=== PATIENT | female | born 1960 | race Caucasian/White ===

== ENCOUNTER 2017-03-07 08:33 | Emergency (ER) | payer MEDICARE, MEDICAID ==
[~2017-03-07] VITALS: Ht 162.6 cm; Wt 62.2 kg
[~2017-03-07 08:33] MED LIST: ALBU18HF2 IH; AMIT-189 PO; BACL10TA PO; GABA600T2 PO; HYDR-569 PO; IBUP-1985 PO; NAPR-56 PO; TRAM50TA2 PO
[2017-03-07] MEDS ORDERED: naproxen 500mg tablet PO ONE (09:15)
[2017-03-07] MEDS ORDERED: BUPIVAcaine/PF 2.5mg/ml (0.25%) 10ml vial IJ ONE (09:15)
[2017-03-07] MEDS ORDERED: HYDROcodone/acetaminophen 10/325mg tab PO ONE (09:15)
[2017-03-07] MEDS ORDERED: ipratropium/albuterol 3ml nebule NEB ONE (09:45)
[2017-03-07] MEDS ORDERED: PRED50TA PO (10:24)
[2017-03-07] MEDS ORDERED: AZIT-57 PO (10:24)
[2017-03-07] MEDS ORDERED: IBUP-1985 PO (10:24)
[2017-03-07] MEDS ORDERED: GUAI120015 PO (10:50)
[2017-03-07 10:53] VITALS: BP 118/64
== END 2017-03-07 10:55 | disposition home or self-care (01) ==
LOC: ER 08:34
DX: S63.283A Dislocation of proximal interphalangeal joint of left middle finger, initial encounter (principal); J44.1 Chronic obstructive pulmonary disease with (acute) exacerbation; R91.1 Solitary pulmonary nodule; F17.200 Nicotine dependence, unspecified, uncomplicated; G89.29 Other chronic pain; F32.9 Major depressive disorder, single episode, unspecified; M19.90 Unspecified osteoarthritis, unspecified site; F12.10 Cannabis abuse, uncomplicated; Z98.51 Tubal ligation status; Z56.0 Unemployment, unspecified; Z88.0 Allergy status to penicillin; Z88.1 Allergy status to other antibiotic agents; W01.0XXA Fall on same level from slipping, tripping and stumbling without subsequent striking against object, initial encounter; Y93.89 Activity, other specified; Y99.8 Other external cause status; Y92.009 Unspecified place in unspecified non-institutional (private) residence as the place of occurrence of the external cause
CPT/HCPCS: 26770; 71045; 73140; 94640; 94760; 99284; J3490

== ENCOUNTER 2017-04-21 01:25 | Emergency (ER) | payer MEDICARE, MEDICAID ==
[~2017-04-21] VITALS: Ht 167.6 cm; Wt 54.5 kg
[~2017-04-21 01:25] MED LIST changes: +GUAI120015 PO; +PRED50TA PO
[2017-04-21] MEDS ORDERED: normal saline 1000ML IV soln IVB ONE (01:30)
[2017-04-21 01:42] LABS: BASOPHILS # (AUTO) 0.1 X10'3 (0-0.2); EOSINOPHILS # (AUTO) 0.3 X10'3 (0-0.9); EOSINOPHILS % (AUTO) 4.7 % (0-6); HEMATOCRIT 36.1 % (35.0-45.0); HEMOGLOBIN 12.7 g/dl (12.0-16.0); LYMPHOCYTES # (AUTO) 1.5 X10'3 (1.1-4.8); LYMPHOCYTES % (AUTO) 25.4 % (21-51); MEAN CORPUSCULAR HEMOGLOBIN 33.6 PG (27.0-31.0); MEAN CORPUSCULAR HGB CONC 35.1 % (33.0-36.5); MEAN CORPUSCULAR VOLUME 95.7 FL (78-98); MEAN PLATELET VOLUME 8.3 FL (7.4-10.4); MONOCYTES # (AUTO) 0.7 X10'3 (0-0.9); MONOCYTES % (AUTO) 11.7 % (2-12); NEUTROPHILS # (AUTO) 3.3 X10'3 (1.8-7.7); NEUTROPHILS % (AUTO) 57.2 % (42-75); PLATELET COUNT 230 X10'3 (140-440); RED BLOOD COUNT 3.77 X10'6 (4.20-5.60); RED CELL DISTRIBUTION WIDTH 11.2 % (11.5-14.5); WHITE BLOOD COUNT 5.9 X10'3 (4.5-11.0)
[2017-04-21 01:55] LABS: CLARITY,URINE CLEAR (Clear); COLOR,URINE YELLOW (Yellow); GLUCOSE, URINE 500 mg/dl (Neg); KETONES,URINE 15 mg/dl (Neg); LEUKOCYTE ESTERASE ,URINE NEGATIVE (Neg); NITRITES, URINE NEGATIVE (Neg); OCCULT BLOOD,URINE TRACE-INTACT (Neg); PROTEIN,URINE 30 mg/dl (Neg); UROBILINOGEN,URINE 0.2 E.U/dL (0.2-1.0)
[2017-04-21 01:58] LABS: ALANINE AMINOTRANSFERASE 32 U/L (12-78); ALBUMIN 3.3 G/DL (3.4-5.0); ALBUMIN/GLOBULIN RATIO 1.1 (1.1-1.5); ALKALINE PHOSPHATASE 83 IU/L (46-116); ANION GAP 8 (8-16); ASPARTATE AMINO TRANSFERASE 31 U/L (10-37); BILIRUBIN,TOTAL 0.4 MG/DL (0.1-1.0); BLOOD UREA NITROGEN 16 MG/DL (7-18); BUN/CREATININE RATIO 21.9 (6.6-38.0); CALCIUM 8.7 MG/DL (8.5-10.1); CHLORIDE 107 MMOL/L (99-107); CREATININE 0.73 MG/DL (0.40-0.90); GLUCOSE 212 MG/DL (70-104); POTASSIUM 3.8 MMOL/L (3.5-5.1); SODIUM 141 MMOL/L (135-145); TOTAL CARBON DIOXIDE 25.8 MMOL/L (24-32); TOTAL PROTEIN 6.2 G/DL (6.4-8.2); eGFR 83 ML/MIN
[2017-04-21 02:02] LABS: UA COLLECTION TYPE FOLEY CATH
[2017-04-21 02:03] LABS: AMORPHOUS PHOSPHATES 1+; BACTERIA,URINE FEW /HPF (Neg); RBC,URINE 0-2 /HPF (0-2); SQUAMOUS EPITHELIAL CELL,UR FEW /LPF (FEW); WBC,URINE NONE SEEN /HPF (0-4)
[2017-04-21 02:08] LABS: URINE AMPHETAMINE SCREEN POSITIVE (Neg); URINE BARBITUATE SCREEN NEGATIVE (Neg); URINE BENZODIAZEPINES SCREEN NEGATIVE (Neg); URINE CANNABINOID SCREEN POSITIVE (Neg); URINE COCAINE SCREEN NEGATIVE (Neg); URINE METHADONE SCREEN NEGATIVE (Neg); URINE OPIATE SCREEN POSITIVE (Neg); URINE PHENCYCLIDINE SCREEN NEGATIVE (Neg)
[2017-04-21 02:09] LABS: ETHANOL < 0.010 GM/DL (0.0-0.010)
[2017-04-21 03:26] VITALS: BP 100/61
== END 2017-04-21 03:32 | disposition home or self-care (01) ==
LOC: ER 01:26
DX: T40.601A Poisoning by unspecified narcotics, accidental (unintentional), initial encounter (principal); F15.10 Other stimulant abuse, uncomplicated; R91.1 Solitary pulmonary nodule; J44.9 Chronic obstructive pulmonary disease, unspecified; G89.29 Other chronic pain; F12.10 Cannabis abuse, uncomplicated; Z60.2 Problems related to living alone; Z56.0 Unemployment, unspecified; Z79.899 Other long term (current) drug therapy; Z88.0 Allergy status to penicillin; Y92.89 Other specified places as the place of occurrence of the external cause
CPT/HCPCS: 36415; 71045; 80053; 80305; 80320; 81001; 85025; 93005; 99285; J7030

== ENCOUNTER 2018-12-25 23:16 | Emergency (ER) | payer MEDICARE, MEDICAID ==
[~2018-12-25] VITALS: Ht 162.6 cm; Wt 55.5 kg
[~2018-12-25 23:16] MED LIST changes: +GABA600T13 PO; -GABA600T2 PO; +HYDR-4383 PO; -HYDR-569 PO
[2018-12-25] MEDS ORDERED: ondansetron/PF 4mg/2ml inj IV ONE (23:45)
[2018-12-25] MEDS ORDERED: normal saline 1000ML IV soln IVB ONE (23:45)
[2018-12-26] MEDS ORDERED: iohexol 300mg/ml 100ml inj. ONE (00:07)
[2018-12-26 00:29] LABS: BASOPHILS % (AUTO) 0.2 % (0-1); EOSINOPHILS # (AUTO) 0.1 X10'3 (0-0.9); EOSINOPHILS % (AUTO) 1.2 % (0-6); HEMATOCRIT 38.6 % (35.0-45.0); HEMOGLOBIN 13.3 g/dl (12.0-16.0); LYMPHOCYTES # (AUTO) 1.7 X10'3 (1.1-4.8); LYMPHOCYTES % (AUTO) 24.1 % (21-51); MEAN CORPUSCULAR HEMOGLOBIN 33.5 PG (27.0-31.0); MEAN CORPUSCULAR HGB CONC 34.5 g/dL (33.0-36.5); MEAN CORPUSCULAR VOLUME 97.1 FL (78-98); MEAN PLATELET VOLUME 8.1 FL (7.4-10.4); MONOCYTES # (AUTO) 0.7 X10'3 (0-0.9); NEUTROPHILS # (AUTO) 4.6 X10'3 (1.8-7.7); NEUTROPHILS % (AUTO) 64.5 % (42-75); PLATELET COUNT 181 X10'3 (140-440); RED BLOOD COUNT 3.98 X10'6 (4.20-5.60); RED CELL DISTRIBUTION WIDTH 12.2 % (11.5-14.5); WHITE BLOOD COUNT 7.1 X10'3 (4.5-11.0)
[2018-12-26 00:38] LABS: ALANINE AMINOTRANSFERASE 23 U/L (12-78); ALBUMIN 3.6 G/DL (3.4-5.0); ALBUMIN/GLOBULIN RATIO 1.1 (1.1-1.5); ALKALINE PHOSPHATASE 90 IU/L (46-116); ANION GAP 8 (8-16); ASPARTATE AMINO TRANSFERASE 20 U/L (10-37); BILIRUBIN,TOTAL 0.3 MG/DL (0.1-1.0); BLOOD UREA NITROGEN 11 MG/DL (7-18); BUN/CREATININE RATIO 12.1 (6.6-38.0); CHLORIDE 106 MMOL/L (99-107); CREATININE 0.91 MG/DL (0.40-0.90); ETHANOL < 0.010 GM/DL (0.0-0.010); GLUCOSE 86 MG/DL (70-104); POTASSIUM 3.4 MMOL/L (3.5-5.1); SODIUM 142 MMOL/L (135-145); TOTAL CARBON DIOXIDE 28.5 MMOL/L (24-32); TOTAL PROTEIN 6.9 G/DL (6.4-8.2); eGFR 64 ML/MIN
[2018-12-26 01:30] LABS: URINE AMPHETAMINE SCREEN NEGATIVE (Neg); URINE BARBITUATE SCREEN NEGATIVE (Neg); URINE BENZODIAZEPINES SCREEN NEGATIVE (Neg); URINE CANNABINOID SCREEN POSITIVE (Neg); URINE COCAINE SCREEN NEGATIVE (Neg); URINE METHADONE SCREEN NEGATIVE (Neg); URINE OPIATE SCREEN NEGATIVE (Neg); URINE PHENCYCLIDINE SCREEN NEGATIVE (Neg)
[2018-12-26 01:54] VITALS: BP 123/59
== END 2018-12-26 01:56 ==
LOC: ER 23:16
DX: S22.41XA Multiple fractures of ribs, right side, initial encounter for closed fracture (principal); R47.81 Slurred speech; J44.9 Chronic obstructive pulmonary disease, unspecified; M19.90 Unspecified osteoarthritis, unspecified site; F32.9 Major depressive disorder, single episode, unspecified; G89.29 Other chronic pain; F17.200 Nicotine dependence, unspecified, uncomplicated; F12.90 Cannabis use, unspecified, uncomplicated; Z88.0 Allergy status to penicillin; Z88.1 Allergy status to other antibiotic agents; Z79.899 Other long term (current) drug therapy; Z98.51 Tubal ligation status; Z60.2 Problems related to living alone; Z56.0 Unemployment, unspecified; V43.52XA Car driver injured in collision with other type car in traffic accident, initial encounter; Y93.89 Activity, other specified; Y92.413 State road as the place of occurrence of the external cause; Y99.8 Other external cause status
CPT/HCPCS: 36415; 70450; 71260; 74177; 80053; 80305; 80320; 85025; 93005; 96374; 99284; J2405; J7030; Q9967

== ENCOUNTER 2019-03-01 19:41 | Observation (INO) | payer MEDICARE, MEDICAID ==
[~2019-03-01] VITALS: Ht 162.6 cm; Wt 55.5 kg
[2019-03-01] MEDS ORDERED: TIZA4TAB5 PO (22:22)
[2019-03-01] MEDS ORDERED: IBUP-1986 PO (22:22)
[2019-03-01] MEDS ORDERED: BUPR1FIL3 PO (22:22)
[2019-03-01] MEDS ORDERED: DULO60CA65 PO (22:22)
[2019-03-01] MEDS ORDERED: GABA800T11 PO (22:22)
[2019-03-01] MEDS ORDERED: ARIP2TAB20 PO (22:22)
[2019-03-01] MEDS ORDERED: ARIP5TAB60 PO (22:22)
[2019-03-01] MEDS ORDERED: AMIT100T61 PO (22:22)
[2019-03-01 23:10] LABS: BASOPHILS % (AUTO) 0.3 % (0-1); EOSINOPHILS # (AUTO) 0.1 X10'3 (0-0.9); EOSINOPHILS % (AUTO) 1.9 % (0-6); HEMATOCRIT 39.1 % (35.0-45.0); HEMOGLOBIN 13.5 g/dl (12.0-16.0); LYMPHOCYTES # (AUTO) 1.9 X10'3 (1.1-4.8); LYMPHOCYTES % (AUTO) 31.5 % (21-51); MEAN CORPUSCULAR HEMOGLOBIN 33.2 PG (27.0-31.0); MEAN CORPUSCULAR HGB CONC 34.6 g/dL (33.0-36.5); MEAN PLATELET VOLUME 7.9 FL (7.4-10.4); MONOCYTES # (AUTO) 0.5 X10'3 (0-0.9); NEUTROPHILS # (AUTO) 3.5 X10'3 (1.8-7.7); NEUTROPHILS % (AUTO) 57.3 % (42-75); PLATELET COUNT 201 X10'3 (140-440); RED BLOOD COUNT 4.07 X10'6 (4.20-5.60); RED CELL DISTRIBUTION WIDTH 12.2 % (11.5-14.5); WHITE BLOOD COUNT 6.1 X10'3 (4.5-11.0)
[2019-03-01 23:19] LABS: PARTIAL THROMBOPLASTIN TIME 30 SECONDS (22-32)
[2019-03-01 23:31] LABS: ALANINE AMINOTRANSFERASE 18 U/L (12-78); ALBUMIN 3.7 G/DL (3.4-5.0); ALBUMIN/GLOBULIN RATIO 1.2 (1.1-1.5); ALKALINE PHOSPHATASE 97 IU/L (46-116); ANION GAP 6 (8-16); ASPARTATE AMINO TRANSFERASE 15 U/L (10-37); BILIRUBIN,TOTAL 0.3 MG/DL (0.1-1.0); BLOOD UREA NITROGEN 15 MG/DL (7-18); BUN/CREATININE RATIO 20.5 (6.6-38.0); CALCIUM 9.6 MG/DL (8.5-10.1); CHLORIDE 106 MMOL/L (99-107); CREATININE 0.73 MG/DL (0.40-0.90); GLUCOSE 89 MG/DL (70-104); POTASSIUM 3.9 MMOL/L (3.5-5.1); SODIUM 141 MMOL/L (135-145); TOTAL CARBON DIOXIDE 29.4 MMOL/L (24-32); TOTAL PROTEIN 6.8 G/DL (6.4-8.2); eGFR 82 ML/MIN
[2019-03-02] MEDS ORDERED: normal saline 1000ml 1,000 ML IV SCH (02:01)
[2019-03-02] MEDS ORDERED: ondansetron/PF 4mg/2ml inj IV PRN (02:05)
[2019-03-02] MEDS ORDERED: albuterol 2.5 MG/3 ML nebule NEB PRN (02:10)
[2019-03-02] MEDS ORDERED: amitriptyline 25mg tablet PO ONE (02:55)
[2019-03-02] MEDS ORDERED: aripiprazole 5mg tablet PO ONE (02:55)
[2019-03-02] MEDS ORDERED: duloxetine 30mg CAPSULE.DR PO ONE (02:55)
[2019-03-02] MEDS ORDERED: tizanidine 4mg tablet PO ONE (02:55)
[2019-03-02 04:12] VITALS: BP 114/63
--- NOTE | 2019-03-02 04:15 | NUR ---
pt arrived to unit, vital signs stable. bed low locked, 2x rails up, call light in reach in no apparent distress. will continue to monitor
--- NOTE | 2019-03-02 06:16 | NUR ---
Patient in room [facility]. I have received report from RIGO Davis and had the opportunity to ask questions and assume patient care.
[2019-03-02 07:00] VITALS: BP 99/55
[2019-03-02] MEDS ORDERED: ibuprofen tablet 400 MG TABLET PO PRN (08:00)
[2019-03-02] MEDS ORDERED: buprenorphine/naloxone 8MG-2MG SUBlingual film SL SCH (08:00)
[2019-03-02] MEDS ORDERED: baclofen 10mg tablet PO SCH (08:00)
[2019-03-02] MEDS: gabapentin 400mg capsule PO SCH ×2 (08:32→13:51)
[2019-03-02] MEDS ORDERED: iohexol 350MG/ML 100ml bottle IV ONE (13:13)
--- NOTE | 2019-03-02 15:57 | NUR ---
After CTA report was read, Dr. Henning contacted to see if he was going to consult on patient. Dr. Henning stated there was no reason to see the patient. Dr. Isaac notified and stated that we can move forward with discharge.
--- NOTE | 2019-03-02 16:57 | NUR ---
Went into discharge patient and go over paperwork. Patient states that she does not have a ride right now but will let primary nurse know when she does have a ride for discharge. Will continue to monitor.
--- NOTE | 2019-03-02 18:00 | NUR ---
Patient discharged home and taken from unit via ambulation with x1 staff. Patient PIV removed with cannula intact. Patient was given discharge instructions and these were discussed with her, patient was given time for question and answers. Patient stated an understanding of the teaching and was also given education on how to try and quit smoking. Patient was encouraged to follow up with PCP in the next week, patient stated she planned on going in on Monday. No new prescriptions at this time.
[2019-03-02] MEDS ORDERED: duloxetine 30mg CAPSULE.DR PO SCH (21:00)
[2019-03-02] MEDS ORDERED: aripiprazole 5mg tablet PO SCH (21:00)
[2019-03-02] MEDS ORDERED: tizanidine 4mg tablet PO SCH (21:00)
[2019-03-02] MEDS ORDERED: amitriptyline 50mg tablet PO SCH (21:00)
--- NOTE | 2019-03-05 13:37 | NUR ---
Case Management DC follow up. spoke to pt via telephone. Pt denies swallowing issues, SOB, resp distress, N/V, dizziness. pt states she feels good and has no recurrence. All needs met and questions answered at DC. taking all meds as ordered and verbalizes understanding of why they are prescribed. pt was thankful for the reminder to follow up w/PCP Dr Dietz. No further questions at this time
== END 2019-03-02 18:00 | disposition home or self-care (01) ==
LOC: ER 19:41 → ED HOLD 03-02 02:01 → SUR 3N 03-02 03:10
PROVIDERS: ADMIT Internal Medicine; ATTEND Internal Medicine
DX: T17.228A Food in pharynx causing other injury, initial encounter (principal); G89.29 Other chronic pain; J44.9 Chronic obstructive pulmonary disease, unspecified; M19.90 Unspecified osteoarthritis, unspecified site; F32.9 Major depressive disorder, single episode, unspecified; F17.210 Nicotine dependence, cigarettes, uncomplicated; Z98.51 Tubal ligation status; Z79.899 Other long term (current) drug therapy; Z88.0 Allergy status to penicillin; Z88.8 Allergy status to other drugs, medicaments and biological substances
CPT/HCPCS: 36415; 71045; 71275; 80053; 85025; 85610; 85730; 87081; 93005; 99284; G0378; Q9967; J7030

== ENCOUNTER 2019-03-11 13:09 | Emergency (ER) | payer MEDICARE, MEDICAID ==
[~2019-03-11] VITALS: Ht 162.6 cm; Wt 56.0 kg
[~2019-03-11 13:09] MED LIST changes: -AMIT-189 PO; +AMIT100T61 PO; +ARIP2TAB20 PO; +ARIP5TAB60 PO; +BUPR1FIL3 PO; +DULO60CA65 PO; -GABA600T13 PO; +GABA800T11 PO; -GUAI120015 PO; -HYDR-4383 PO; -IBUP-1985 PO; +IBUP-1986 PO; -NAPR-56 PO; -PRED50TA PO; +TIZA4TAB5 PO; -TRAM50TA2 PO
[2019-03-11 13:18] VITALS: BP 122/76
[2019-03-11 13:38] LABS: URINE HCG NEGATIVE (NEG)
[2019-03-11 13:40] LABS: BASOPHILS % (AUTO) 0.2 % (0-1); EOSINOPHILS % (AUTO) 0.4 % (0-6); HEMATOCRIT 42.2 % (35.0-45.0); HEMOGLOBIN 14.5 g/dl (12.0-16.0); LYMPHOCYTES # (AUTO) 1.3 X10'3 (1.1-4.8); LYMPHOCYTES % (AUTO) 14.8 % (21-51); MEAN CORPUSCULAR HEMOGLOBIN 32.6 PG (27.0-31.0); MEAN CORPUSCULAR HGB CONC 34.4 g/dL (33.0-36.5); MEAN CORPUSCULAR VOLUME 94.9 FL (78-98); MEAN PLATELET VOLUME 8.1 FL (7.4-10.4); MONOCYTES # (AUTO) 0.4 X10'3 (0-0.9); MONOCYTES % (AUTO) 5.1 % (2-12); NEUTROPHILS % (AUTO) 79.5 % (42-75); PLATELET COUNT 196 X10'3 (140-440); RED BLOOD COUNT 4.45 X10'6 (4.20-5.60); RED CELL DISTRIBUTION WIDTH 12.1 % (11.5-14.5); WHITE BLOOD COUNT 8.8 X10'3 (4.5-11.0)
[2019-03-11 13:40] LABS: CLARITY,URINE CLOUDY (Clear); COLOR,URINE YELLOW (Yellow); GLUCOSE, URINE NEGATIVE (Neg); KETONES,URINE NEGATIVE (Neg); LEUKOCYTE ESTERASE ,URINE NEGATIVE (Neg); NITRITES, URINE NEGATIVE (Neg); OCCULT BLOOD,URINE MODERATE (Neg); PROTEIN,URINE TRACE mg/dl (Neg); UROBILINOGEN,URINE 0.2 E.U/dL (0.2-1.0)
[2019-03-11 13:48] LABS: UA COLLECTION TYPE CLN CATCH MIDSTREAM
[2019-03-11 13:50] LABS: BACTERIA,URINE 1+ /HPF (Neg); MUCUS STRANDS MODERATE /LPF (Neg); RBC,URINE 20-50 /HPF (0-2); SQUAMOUS EPITHELIAL CELL,UR MODERATE /LPF (FEW); WBC,URINE 20-30 /HPF (0-4)
[2019-03-11 13:51] LABS: FINE GRANULAR CAST 0-3 /LPF (NEGATIVE); TRANSITIONAL EPI CELLS,URINE FEW /HPF
[2019-03-11 13:54] LABS: ALANINE AMINOTRANSFERASE 65 U/L (12-78); ALBUMIN 3.8 G/DL (3.4-5.0); ALKALINE PHOSPHATASE 94 IU/L (46-116); ANION GAP 8 (8-16); ASPARTATE AMINO TRANSFERASE 43 U/L (10-37); BILIRUBIN,TOTAL 0.4 MG/DL (0.1-1.0); BLOOD UREA NITROGEN 6 MG/DL (7-18); BUN/CREATININE RATIO 7.7 (6.6-38.0); CALCIUM 10.1 MG/DL (8.5-10.1); CHLORIDE 106 MMOL/L (99-107); CREATININE 0.78 MG/DL (0.40-0.90); GLUCOSE 148 MG/DL (70-104); LIPASE 86 U/L (73-393); POTASSIUM 3.5 MMOL/L (3.5-5.1); SODIUM 142 MMOL/L (135-145); TOTAL CARBON DIOXIDE 28.1 MMOL/L (24-32); TOTAL PROTEIN 7.6 G/DL (6.4-8.2); eGFR 76 ML/MIN
[2019-03-11] MEDS ORDERED: CEPH250T PO (14:48)
== END 2019-03-11 15:13 | disposition home or self-care (01) ==
LOC: ER 13:10
DX: N39.0 Urinary tract infection, site not specified (principal); J44.9 Chronic obstructive pulmonary disease, unspecified; M19.90 Unspecified osteoarthritis, unspecified site; G89.29 Other chronic pain; F32.9 Major depressive disorder, single episode, unspecified; F12.90 Cannabis use, unspecified, uncomplicated; Z98.51 Tubal ligation status; Z56.0 Unemployment, unspecified; Z60.2 Problems related to living alone; Z88.0 Allergy status to penicillin; Z88.1 Allergy status to other antibiotic agents; Z79.2 Long term (current) use of antibiotics; Z79.899 Other long term (current) drug therapy
CPT/HCPCS: 36415; 80053; 81001; 81025; 83690; 85025; 87088; 99283

== ENCOUNTER 2020-04-15 12:53 | Emergency (ER) | payer BC, MEDICAID ==
[~2020-04-15] VITALS: Ht 162.6 cm; Wt 56.8 kg
[2020-04-15 12:58] VITALS: BP 97/56
== END 2020-04-15 13:40 | disposition home or self-care (01) ==
LOC: ER 12:54
DX: Z00.8 Encounter for other general examination (principal); F15.90 Other stimulant use, unspecified, uncomplicated; J44.9 Chronic obstructive pulmonary disease, unspecified; M19.90 Unspecified osteoarthritis, unspecified site; G89.29 Other chronic pain; F32.9 Major depressive disorder, single episode, unspecified; F12.90 Cannabis use, unspecified, uncomplicated; Z98.51 Tubal ligation status; Z72.89 Other problems related to lifestyle; Z60.2 Problems related to living alone; Z56.0 Unemployment, unspecified; Z88.0 Allergy status to penicillin; Z88.1 Allergy status to other antibiotic agents; Z79.899 Other long term (current) drug therapy; V87.7XXA Person injured in collision between other specified motor vehicles (traffic), initial encounter; Y93.89 Activity, other specified; Y92.89 Other specified places as the place of occurrence of the external cause; Y99.8 Other external cause status
CPT/HCPCS: 99283

== ENCOUNTER 2021-12-03 07:16 | Inpatient (IN) | payer MEDICARE, MEDICAID ==
[2021-11-24 14:25] LABS: BASOPHILS % (AUTO) 0.5 % (0-1); EOSINOPHILS # (AUTO) 0.1 X10'3 (0-0.9); LYMPHOCYTES # (AUTO) 1.7 X10'3 (1.1-4.8); LYMPHOCYTES % (AUTO) 27.5 % (21-51); MEAN CORPUSCULAR HEMOGLOBIN 31.9 PG (27.0-31.0); MEAN CORPUSCULAR HGB CONC 33.7 g/dL (33.0-36.5); MEAN CORPUSCULAR VOLUME 94.7 FL (78-98); MEAN PLATELET VOLUME 7.4 FL (7.4-10.4); MONOCYTES # (AUTO) 0.5 X10'3 (0-0.9); MONOCYTES % (AUTO) 7.7 % (2-12); NEUTROPHILS # (AUTO) 3.8 X10'3 (1.8-7.7); NEUTROPHILS % (AUTO) 63.3 % (42-75); PRE OP HEMATOCRIT 40.5 % (35.0-45.0); PRE OP HEMOGLOBIN 13.6 g/dL (12.0-16.0); PRE OP PLATELET COUNT 249 X10'3 (140-440); RED BLOOD COUNT 4.28 X10'6 (4.20-5.60); RED CELL DISTRIBUTION WIDTH 12.4 % (11.5-14.5)
[2021-11-24 14:39] LABS: ALBUMIN 4.2 G/DL (3.4-5.0); ALBUMIN/GLOBULIN RATIO 1.3 (1.1-1.5); ALKALINE PHOSPHATASE 95 IU/L (46-116); BLOOD UREA NITROGEN 18 MG/DL (7-18); CALCIUM 10.5 MG/DL (8.5-10.1); CHLORIDE 108 MMOL/L (99-107); PRE OP ALT 19 U/L (30-65); PRE OP ANION GAP 5 (8-16); PRE OP AST 11 U/L (10-37); PRE OP BILIRUB, TOTAL 0.3 MG/DL (0.0-1.0); PRE OP GLUCOSE 109 MG/DL (70-104); PRE OP SODIUM 143 MMOL/L (135-145); TOTAL CARBON DIOXIDE 30.1 MMOL/L (24-32); TOTAL PROTEIN 7.5 G/DL (6.4-8.2); eGFR 64 ML/MIN
[~2021-12-03] VITALS: Ht 162.6 cm; Wt 53.5 kg
[~2021-12-03 07:16] MED LIST changes: +ARIP10TA57 PO; -ARIP2TAB20 PO; -ARIP5TAB60 PO; -BACL10TA PO; +BUSP5TAB3 PO; +DICL100G30 TOP; +DOCU50CA13 PO; -DULO60CA65 PO; +HYDR50CA PO; +HYDROmorphone 1 mg/ml syringe IV PRN; +HYDROmorphone inj. 0.5 MG/0.5 ML DISP.SYRIN IV PRN; -IBUP-1986 PO; +OMEP20TA43 PO; +TIZA-205 PO; +TIZA4TAB11 PO; -TIZA4TAB5 PO; +TRAM50TA2 PO; +acetaminophen 325mg tablet PO ONE; +acetaminophen 325mg tablet PO PRN; +albuterol 2.5 MG/3 ML nebule NEB PRN; +bisacodyl 10mg suppository rectal RC PRN; +ceFAZolin inj. 2,000 MG in dextrose 5%-water 100 ML IV ONE; +celeCOXIB 100mg capsule PO ONE; +diphenhydrAMINE 25mg capsule PO PRN; +famotidine 20mg tablet PO ONE; +gabapentin 300mg capsule PO ONE; +magnesium hydroxide 30ml (MOM) UD suspension PO PRN; +metoclopramide 5 mg/ml inj IV ONE; +naloxone 0.4 mg/ml inj IV PRN; +ondansetron/PF 4mg/2ml inj IV PRN; +oxyCODONE IR 5mg (immed. release) tablet PO PRN; +oxyCODONE SR 10mg (sust. release) tab -2 tabs (20mg) PO ONE; +potassium cl 20mEq in 1/2 NS 1,000 ML IV SCH; +ringers solution, lacted 1,000 ML IV SCH; +tranexamic acid inj. 1,000 MG in normal saline IV soln 100ML IV ONE; +vancomycin/NS 1 GM in NS 250 ML IV ONE
[2021-12-03] MEDS ORDERED: buprenorphine/naloxone 8MG-2MG SUBlingual film SL SCH ×2 (08:00→21:00)
[2021-12-03] MEDS ORDERED: ascorbic acid 500mg tablet PO SCH ×2 (08:00→20:00)
[2021-12-03] MEDS ORDERED: busPIRone 5mg tablet PO SCH ×2 (08:00→20:00)
[2021-12-03] MEDS ORDERED: gabapentin 400mg capsule PO PRN (08:00)
[2021-12-03] MEDS ORDERED: docusate sod 100mg capsule PO SCH ×2 (08:00→20:00)
[2021-12-03] MEDS ORDERED: multivitamins, therapeutics tablet PO SCH (08:00)
[2021-12-03] MEDS ORDERED: aspirin 325mg tablet PO SCH (08:30)
[2021-12-03] MEDS ORDERED: ketorolac trometh. 30mg/ml inj. ONE (09:14)
[2021-12-03] MEDS ORDERED: cloNIDine hcl/PF 100mcg/ml inj ONE (09:14)
[2021-12-03] MEDS ORDERED: epiNEPHrine 1 mg/ml inj ONE (09:14)
[2021-12-03] MEDS ORDERED: vancomycin 1,000mg inj ONE (09:14)
[2021-12-03] MEDS ORDERED: ROPIVAcaine 0.5% (5mg/ml) 30ml vial ONE (09:15)
[2021-12-03] MEDS ORDERED: ringers solution, lacted 1,000 ML IV SCH (09:55)
[2021-12-03] MEDS ORDERED: proCHLORperazine 10 MG/2 ml inj IV PRN (09:55)
[2021-12-03] MEDS ORDERED: morphine 2 MG/ML inj. syringe IV PRN (09:55)
[2021-12-03] MEDS ORDERED: meperidine/PF 25mg/ml syringe IV PRN ×3 (09:55)
[2021-12-03] MEDS ORDERED: morphine 4 MG/ML inj SYRINge IV PRN (09:55)
[2021-12-03] MEDS ORDERED: ondansetron/PF 4mg/2ml inj IV PRN (09:55)
--- NOTE | 2021-12-03 11:11 | NUR ---
patient taken out to personal vehicle where friend.
--- NOTE | 2021-12-03 11:12 | NUR ---
patient taken out to personal vehicle where she was taken home. Addendum: 12/03/21 at 1112 by Michael Adkins RN, RN Amended: Links added.
[2021-12-03 12:00] VITALS: BP 92/60
[2021-12-03 12:01] VITALS: BP 92/60
[2021-12-03] MEDS ORDERED: tranexamic acid inj. 530 MG in normal saline 100ml IV soln 94.7 ML IV ONE (15:00)
[2021-12-03] MEDS ORDERED: ceFAZolin/D5W- 1GM premix 50 ML IV SCH (16:00)
[2021-12-03] MEDS ORDERED: vancomycin/NS 1 GM ADD-VANTAGE 250 ML IV SCH (20:00)
[2021-12-03] MEDS ORDERED: tizanidine 4mg tablet PO SCH (21:00)
[2021-12-03] MEDS ORDERED: amitriptyline 50mg tablet PO SCH (21:00)
[2021-12-03] MEDS ORDERED: hydrOXYzine 25 MG tablet PO SCH (21:00)
[2021-12-03] MEDS ORDERED: ARIPIPRAZOLE 10 MG TABLET PO SCH (21:00)
[2021-12-03] MEDS ORDERED: sennosides 8.6mg tablet PO SCH (21:00)
[2021-12-03] MEDS ORDERED: pantoprazole 40mg Tablet.DR PO SCH (21:00)
[2021-12-04] MEDS ORDERED: multivitamins, therapeutics tablet PO SCH (08:00)
[2021-12-04] MEDS ORDERED: aspirin 325mg tablet PO SCH (08:30)
[2021-12-04] MEDS ORDERED: celeCOXIB 100mg capsule PO SCH (20:00)
[2021-12-08] MEDS ORDERED: GABA-530 PO (13:48)
[2021-12-08] MEDS ORDERED: IBUP-1985 PO (13:52)
== END 2021-12-03 09:00 | disposition home or self-care (01) | DRG 554 ==
LOC: PAS 07:16 → PAS IN 07:17
PROVIDERS: ADMIT Orthopaedic Surgery; ATTEND Orthopaedic Surgery
DX: M17.11 Unilateral primary osteoarthritis, right knee (principal); K21.9 Gastro-esophageal reflux disease without esophagitis; J44.9 Chronic obstructive pulmonary disease, unspecified; F41.9 Anxiety disorder, unspecified; F32.A Depression, unspecified; Z87.891 Personal history of nicotine dependence; Z79.899 Other long term (current) drug therapy
CPT/HCPCS: 36415; 80053; 82948; 85025; 86885; 86900; 86901; 87081; 93005; J0171; J0690; J0735; J1885; J2765; J2795; J3370; J3490; J7060; J7120

== ENCOUNTER 2021-12-09 12:10 | Inpatient (IN) | payer MEDICARE, MEDICAID ==
[~2021-12-09] VITALS: Ht 162.6 cm; Wt 53.5 kg
[2021-12-09] VITALS (17 sets, daily range): BP systolic 94–135; BP diastolic 41–72
[~2021-12-09 12:10] MED LIST changes: -DICL100G30 TOP; +GABA-530 PO; -HYDROmorphone 1 mg/ml syringe IV PRN; -HYDROmorphone inj. 0.5 MG/0.5 ML DISP.SYRIN IV PRN; +IBUP-1985 PO; -TIZA4TAB11 PO; -acetaminophen 325mg tablet PO PRN; -albuterol 2.5 MG/3 ML nebule NEB PRN; -bisacodyl 10mg suppository rectal RC PRN; -diphenhydrAMINE 25mg capsule PO PRN; -magnesium hydroxide 30ml (MOM) UD suspension PO PRN; -naloxone 0.4 mg/ml inj IV PRN; -ondansetron/PF 4mg/2ml inj IV PRN; -oxyCODONE IR 5mg (immed. release) tablet PO PRN; -potassium cl 20mEq in 1/2 NS 1,000 ML IV SCH
[2021-12-09] MEDS ORDERED: diphenhydrAMINE 25mg capsule PO PRN ×2 (15:35)
[2021-12-09] MEDS ORDERED: acetaminophen 325mg tablet PO PRN (15:35)
[2021-12-09] MEDS ORDERED: bisacodyl 10mg suppository rectal RC PRN (15:35)
[2021-12-09] MEDS ORDERED: naloxone 0.4 mg/ml inj IV PRN (15:35)
[2021-12-09] MEDS ORDERED: ondansetron/PF 4mg/2ml inj IV PRN ×2 (15:35→16:00)
[2021-12-09] MEDS ORDERED: albuterol 2.5 MG/3 ML nebule NEB PRN (15:35)
[2021-12-09] MEDS ORDERED: magnesium hydroxide 30ml (MOM) UD suspension PO PRN (15:35)
[2021-12-09] MEDS ORDERED: HYDROmorphone 1 mg/ml syringe IV PRN (15:35)
[2021-12-09] MEDS ORDERED: HYDROmorphone inj. 0.5 MG/0.5 ML DISP.SYRIN IV PRN (15:35)
[2021-12-09] MEDS ORDERED: ROPIVAcaine 0.2%/PF PUMP/bolus 545 ML ADDCANAL SCH (16:00)
[2021-12-09] MEDS ORDERED: ROPIVAcaine 0.2% (10 MG/5 ML) BOLUS INJECTION ADDCANAL PRN (16:00)
[2021-12-09] MEDS ORDERED: meperidine/PF 25mg/ml syringe IV PRN ×3 (16:00)
[2021-12-09] MEDS ORDERED: morphine 2 MG/ML inj. syringe IV PRN (16:00)
[2021-12-09] MEDS ORDERED: morphine 4 MG/ML inj SYRINge IV PRN (16:00)
[2021-12-09] MEDS ORDERED: proCHLORperazine 10 MG/2 ml inj IV PRN (16:00)
[2021-12-09] MEDS ORDERED: ringers solution, lacted 1,000 ML IV SCH (16:00)
[2021-12-09] MEDS ORDERED: fentaNYL/PF 50MCG/1 ML 2ML syringe ONE (16:00)
[2021-12-09] MEDS ORDERED: MIDAZolam 1 MG/ML 5ML VIAL ONE (16:01)
[2021-12-09] MEDS ORDERED: ROPIVAcaine 0.5% (5mg/ml) 30ml vial ONE ×2 (17:06→17:53)
[2021-12-09] MEDS ORDERED: propofol inj 20 ML IV ONE (17:53)
--- NOTE | 2021-12-09 17:56 | NUR ---
Received from OR via BED, accompanied by Anesthesiologist and report given by ZACARIAS Anesthesiologist. PATIENT WAKING UP, DENIES PAIN, V/S WNL, SCD ON, 18G TO RIGHT FOREARM, CIELO DRESSING to RIGHT KNEE C/D/I with POWDER ICE PACK. ON-Q CATHETER NOTED WITH C/D/I AND WILL START ROPIVACAINE DRIP AT 2 CC/HR. Addendum: 12/09/21 at 1826 by Davon Roche RN Amended: Links added.
--- NOTE | 2021-12-09 18:36 | NUR ---
PATIENT HAS MET ALL CRITERIA FOR TRANSFER TO THE SURGICAL FLOOR. VSS. DRESSINGS INTACT. BED LOW, CALL LIGHT PRESENT AND 2 RAILS UP. RN PRESENT TO ACCEPT CARE OF PATIENT AND REPORT HAS BEEN CALLED. ALL QUESTIONS ANSWERED TO ACCEPTING RN. Addendum: 12/09/21 at 1847 by Davon Roche RN Amended: Links added.
--- NOTE | 2021-12-09 18:45 | NUR ---
Patient arrived from by nurse Davon.
[2021-12-09] MEDS: potassium cl 20mEq in 1/2 NS 1,000 ML IV SCH ×2 (19:58→23:35)
[2021-12-09] MEDS: busPIRone 5mg tablet PO SCH (19:59)
[2021-12-09] MEDS: pantoprazole 40mg Tablet.DR PO SCH (19:59)
[2021-12-09] MEDS: gabapentin 400mg capsule PO SCH (19:59)
[2021-12-09] MEDS: amitriptyline 50mg tablet PO SCH (19:59)
[2021-12-09] MEDS: ascorbic acid 500mg tablet PO SCH (19:59)
[2021-12-09] MEDS: sennosides 8.6mg tablet PO SCH (19:59)
[2021-12-09] MEDS: HYDROcodone/acetaminophen 10/325mg tab PO PRN (20:00)
[2021-12-09] MEDS ORDERED: vancomycin/NS 1 GM ADD-VANTAGE 250 ML IV SCH (20:00)
[2021-12-09] MEDS: docusate sod 100mg capsule PO SCH (20:00)
[2021-12-09] MEDS: buprenorphine/naloxone 8MG-2MG SUBlingual film SL SCH (20:14)
[2021-12-09] MEDS ORDERED: NORMAL SALINE IV ONE (21:00)
[2021-12-09] MEDS ORDERED: TRANEXAMIC ACID IV ONE (21:00)
[2021-12-09] MEDS: hydrOXYzine 25 MG tablet PO SCH (22:10)
[2021-12-09] MEDS: ARIPIPRAZOLE 10 MG TABLET PO SCH (22:11)
[2021-12-09] MEDS: tizanidine 4mg tablet PO SCH (22:11)
--- NOTE | 2021-12-09 23:30 | NUR ---
Pt refused to dangle-she is too painful
[2021-12-09] MEDS: ceFAZolin/D5W- 1GM premix 50 ML IV SCH (23:56)
[2021-12-10] MEDS: HYDROcodone/acetaminophen 10/325mg tab PO PRN ×5 (00:08→23:30)
--- NOTE | 2021-12-10 00:48 | NUR ---
Patient agreed to dangle. Tolerated well. No assistance needed.
[2021-12-10 02:00] VITALS: BP 82/40
--- NOTE | 2021-12-10 02:59 | NUR ---
REVIEWED ELEVATOR OPERATOR FREIGHT ASSESSMENT AND IN AGREEMENT.
[2021-12-10 05:30] VITALS: BP 99/47
[2021-12-10] MEDS: potassium cl 20mEq in 1/2 NS 1,000 ML IV SCH ×3 (05:50→23:35)
--- NOTE | 2021-12-10 06:21 | NUR ---
Problems reprioritized. Patient report given, questions answered & plan of care reviewed with Rosalinda SIERRA.
[2021-12-10 06:33] VITALS: BP 99/46
[2021-12-10] MEDS: busPIRone 5mg tablet PO SCH ×2 (07:12→19:52)
[2021-12-10] MEDS: ascorbic acid 500mg tablet PO SCH ×2 (07:12→19:52)
[2021-12-10] MEDS: gabapentin 400mg capsule PO SCH ×3 (07:12→19:53)
[2021-12-10] MEDS: multivitamins, therapeutics tablet PO SCH (07:12)
[2021-12-10] MEDS: docusate sod 100mg capsule PO SCH ×2 (07:12→19:53)
[2021-12-10] MEDS: aspirin 325mg tablet PO SCH (07:14)
[2021-12-10] MEDS: buprenorphine/naloxone 8MG-2MG SUBlingual film SL SCH ×3 (07:17→21:00)
[2021-12-10] MEDS: ceFAZolin/D5W- 1GM premix 50 ML IV SCH (07:17)
[2021-12-10 08:11] LABS: BASOPHILS % (AUTO) 0.3 % (0-1); EOSINOPHILS # (AUTO) 0.1 X10'3 (0-0.9); EOSINOPHILS % (AUTO) 1.6 % (0-6); HEMATOCRIT 36.4 % (35.0-45.0); HEMOGLOBIN 12.1 g/dl (12.0-16.0); LYMPHOCYTES # (AUTO) 1.4 X10'3 (1.1-4.8); MEAN CORPUSCULAR HEMOGLOBIN 31.7 PG (27.0-31.0); MEAN CORPUSCULAR HGB CONC 33.4 g/dL (33.0-36.5); MEAN CORPUSCULAR VOLUME 95.1 FL (78-98); MEAN PLATELET VOLUME 7.4 FL (7.4-10.4); MONOCYTES # (AUTO) 0.8 X10'3 (0-0.9); MONOCYTES % (AUTO) 10.8 % (2-12); NEUTROPHILS # (AUTO) 4.9 X10'3 (1.8-7.7); NEUTROPHILS % (AUTO) 67.3 % (42-75); PLATELET COUNT 216 X10'3 (140-440); RED BLOOD COUNT 3.82 X10'6 (4.20-5.60); RED CELL DISTRIBUTION WIDTH 12.4 % (11.5-14.5); WHITE BLOOD COUNT 7.2 X10'3 (4.5-11.0)
[2021-12-10 08:35] LABS: ANION GAP 5 (8-16); CHLORIDE 108 MMOL/L (99-107); SODIUM 139 MMOL/L (135-145); TOTAL CARBON DIOXIDE 26.2 MMOL/L (24-32)
[2021-12-10 12:14] VITALS: BP 110/41
--- NOTE | 2021-12-10 16:19 | NUR ---
Joint surgery consult: Pt s/p R knee surgery this admit per EMR. Pt seen by RD at bedside. Pt trying to sleep during RD visit politely declines verbal high protein ed but is agreeable to written high protein ed w/ RD contact information left at bedside. LUBA encouraged pt to contact dietitian's office if further questions/concerns. Addendum: 12/10/21 at [address] Amended: Links added.
[2021-12-10 18:00] VITALS: BP 125/70
--- NOTE | 2021-12-10 18:06 | NUR ---
Problems reprioritized. Patient report given, questions answered & plan of care reviewed with BROOKS Avina.
--- NOTE | 2021-12-10 18:15 | NUR ---
Patient in room [facility] 346. I have received report from Rosalinda SIERRA and had the opportunity to ask questions and assume patient care.
[2021-12-10] MEDS: celeCOXIB 100mg capsule PO SCH (19:52)
[2021-12-10] MEDS: amitriptyline 50mg tablet PO SCH (19:52)
[2021-12-10] MEDS: hydrOXYzine 25 MG tablet PO SCH (19:52)
[2021-12-10] MEDS: sennosides 8.6mg tablet PO SCH (19:53)
[2021-12-10] MEDS: pantoprazole 40mg Tablet.DR PO SCH (19:53)
[2021-12-10] MEDS: tizanidine 4mg tablet PO SCH (19:53)
[2021-12-10] MEDS: ARIPIPRAZOLE 10 MG TABLET PO SCH (19:53)
[2021-12-10 22:00] VITALS: BP 121/59
--- NOTE | 2021-12-11 03:27 | NUR ---
Agree with Kailyn PLUNKET NURSE physical assessment.
[2021-12-11] MEDS: HYDROcodone/acetaminophen 10/325mg tab PO PRN ×3 (05:14→13:20)
[2021-12-11 06:00] VITALS: BP 113/60
--- NOTE | 2021-12-11 06:37 | NUR ---
Patient in room [facility]. I have received report from [facility] and had the opportunity to ask questions and assume patient care.
--- NOTE | 2021-12-11 06:38 | NUR ---
Problems reprioritized. Patient report given, questions answered & plan of care reviewed with Perlita SIERRA.
[2021-12-11 07:11] LABS: BASOPHILS % (AUTO) 0.2 % (0-1); EOSINOPHILS # (AUTO) 0.1 X10'3 (0-0.9); EOSINOPHILS % (AUTO) 1.3 % (0-6); HEMATOCRIT 34.5 % (35.0-45.0); HEMOGLOBIN 11.8 g/dl (12.0-16.0); LYMPHOCYTES # (AUTO) 1.1 X10'3 (1.1-4.8); LYMPHOCYTES % (AUTO) 14.3 % (21-51); MEAN CORPUSCULAR HEMOGLOBIN 31.8 PG (27.0-31.0); MEAN CORPUSCULAR HGB CONC 34.1 g/dL (33.0-36.5); MEAN PLATELET VOLUME 7.1 FL (7.4-10.4); MONOCYTES % (AUTO) 12.7 % (2-12); NEUTROPHILS # (AUTO) 5.4 X10'3 (1.8-7.7); NEUTROPHILS % (AUTO) 71.5 % (42-75); PLATELET COUNT 200 X10'3 (140-440); RED CELL DISTRIBUTION WIDTH 12.2 % (11.5-14.5); WHITE BLOOD COUNT 7.5 X10'3 (4.5-11.0)
[2021-12-11] MEDS: celeCOXIB 100mg capsule PO SCH (07:50)
[2021-12-11] MEDS: gabapentin 400mg capsule PO SCH ×2 (07:50→13:20)
[2021-12-11] MEDS: busPIRone 5mg tablet PO SCH (07:50)
[2021-12-11] MEDS: ascorbic acid 500mg tablet PO SCH (07:50)
[2021-12-11] MEDS: docusate sod 100mg capsule PO SCH (07:50)
[2021-12-11] MEDS: multivitamins, therapeutics tablet PO SCH (07:50)
[2021-12-11] MEDS: buprenorphine/naloxone 8MG-2MG SUBlingual film SL SCH (07:51)
[2021-12-11] MEDS: aspirin 325mg tablet PO SCH (07:51)
== END 2021-12-11 14:05 | disposition home or self-care (01) | DRG 470 ==
LOC: PAS 12:10 → PAS IN 15:37 → SUR 3N 18:45
PROVIDERS: ADMIT Orthopaedic Surgery; ATTEND Orthopaedic Surgery
PROC: 3E0T3BZ Introduction of Anesthetic Agent into Peripheral Nerves and Plexi, Percutaneous Approach (ICD-10-PCS; 2021-12-09)
PROC: 3E0T33Z Introduction of Anti-inflammatory into Peripheral Nerves and Plexi, Percutaneous Approach (ICD-10-PCS; 2021-12-09)
PROC: 0SRC069 Replacement of Right Knee Joint with Oxidized Zirconium on Polyethylene Synthetic Substitute, Cemented, Open Approach (ICD-10-PCS; principal; 2021-12-09 16:08)
DX: M17.11 Unilateral primary osteoarthritis, right knee (principal); F41.9 Anxiety disorder, unspecified; F32.A Depression, unspecified; K21.9 Gastro-esophageal reflux disease without esophagitis; J44.9 Chronic obstructive pulmonary disease, unspecified; Z88.0 Allergy status to penicillin; Z79.899 Other long term (current) drug therapy; M21.161 Varus deformity, not elsewhere classified, right knee
CPT/HCPCS: 36415; 73560; 80051; 80053; 82948; 85025; 86885; 86900; 86901; 87081; 93005; 97110; 97116; 97161; 97530; A4215; A7000; C1713; C1776; G0378; J0171; J0690; J0735; J1885; J2250; J2704; J2765; J2795; J3010; J3370; J3480; J3490; J7060; J7120; Q0177

== ENCOUNTER 2022-01-06 22:14 | Emergency (ER) | payer MEDICARE, MEDICAID ==
[~2022-01-06] VITALS: Ht 162.6 cm; Wt 56.0 kg
[~2022-01-06 22:14] MED LIST changes: -acetaminophen 325mg tablet PO ONE; -ceFAZolin inj. 2,000 MG in dextrose 5%-water 100 ML IV ONE; -celeCOXIB 100mg capsule PO ONE; -famotidine 20mg tablet PO ONE; -gabapentin 300mg capsule PO ONE; -metoclopramide 5 mg/ml inj IV ONE; -oxyCODONE SR 10mg (sust. release) tab -2 tabs (20mg) PO ONE; -ringers solution, lacted 1,000 ML IV SCH; -tranexamic acid inj. 1,000 MG in normal saline IV soln 100ML IV ONE; -vancomycin/NS 1 GM in NS 250 ML IV ONE
[2022-01-06 22:25] VITALS: BP 147/78
[2022-01-07] MEDS ORDERED: HYDR-3965 PO (02:25)
[2022-01-07] MEDS ORDERED: IBUP-1984 PO (02:25)
== END 2022-01-07 02:42 | disposition home or self-care (01) ==
LOC: ER 22:15
DX: M25.561 Pain in right knee (principal); J44.9 Chronic obstructive pulmonary disease, unspecified; F32.A Depression, unspecified; G89.29 Other chronic pain; F12.10 Cannabis abuse, uncomplicated; Z56.0 Unemployment, unspecified; Z88.0 Allergy status to penicillin; Z88.1 Allergy status to other antibiotic agents; Z79.899 Other long term (current) drug therapy; Z79.1 Long term (current) use of non-steroidal anti-inflammatories (NSAID); Z79.2 Long term (current) use of antibiotics; W19.XXXA Unspecified fall, initial encounter; Y93.89 Activity, other specified; Y92.89 Other specified places as the place of occurrence of the external cause; Y99.8 Other external cause status
CPT/HCPCS: 73560; 99283

== ENCOUNTER 2022-06-21 05:41 | Day surgery (SDC) | payer BC, MEDICAID ==
[2022-06-15 14:51] LABS: ALBUMIN 3.4 G/DL (3.4-5.0); ALKALINE PHOSPHATASE 97 IU/L (46-116); BLOOD UREA NITROGEN 14 MG/DL (7-18); BUN/CREATININE RATIO 21.9 (10.0-20.0); CALCIUM 9.9 MG/DL (8.5-10.1); CHLORIDE 104 MMOL/L (99-107); CREATININE 0.64 MG/DL (0.40-0.90); PRE OP ALT 16 U/L (30-65); PRE OP ANION GAP 5 (8-16); PRE OP AST 16 U/L (10-37); PRE OP BILIRUB, TOTAL 0.2 MG/DL (0.0-1.0); PRE OP GLUCOSE 87 MG/DL (70-104); PRE OP POTASSIUM 3.9 MMOL/L (3.4-5.1); PRE OP SODIUM 139 MMOL/L (135-145); TOTAL CARBON DIOXIDE 30.1 MMOL/L (24-32); TOTAL PROTEIN 6.9 G/DL (6.4-8.2); eGFR > 90 ML/MIN
[2022-06-15 14:54] LABS: BASOPHILS % (AUTO) 0.2 % (0-1); EOSINOPHILS # (AUTO) 0.1 X10'3 (0-0.9); EOSINOPHILS % (AUTO) 0.8 % (0-6); LYMPHOCYTES # (AUTO) 1.7 X10'3 (1.1-4.8); LYMPHOCYTES % (AUTO) 25.5 % (21-51); MEAN CORPUSCULAR HEMOGLOBIN 31.8 PG (27.0-31.0); MEAN CORPUSCULAR HGB CONC 33.3 g/dL (33.0-36.5); MEAN CORPUSCULAR VOLUME 95.5 FL (78-98); MONOCYTES # (AUTO) 0.6 X10'3 (0-0.9); MONOCYTES % (AUTO) 8.3 % (2-12); NEUTROPHILS # (AUTO) 4.4 X10'3 (1.8-7.7); NEUTROPHILS % (AUTO) 65.2 % (42-75); PRE OP HEMATOCRIT 37.7 % (35.0-45.0); PRE OP HEMOGLOBIN 12.6 g/dL (12.0-16.0); PRE OP PLATELET COUNT 212 X10'3 (140-440); RED BLOOD COUNT 3.95 X10'6 (4.20-5.60); RED CELL DISTRIBUTION WIDTH 13.3 % (11.5-14.5)
[~2022-06-21] VITALS: Ht 162.6 cm; Wt 50.0 kg
[2022-06-21] VITALS (22 sets, daily range): BP systolic 90–131; BP diastolic 47–68
[~2022-06-21 05:41] MED LIST changes: +ARIP30TA7 PO; -DOCU50CA13 PO; -GABA-530 PO; -HYDR50CA PO; -IBUP-1985 PO; -TRAM50TA2 PO; +TRAZ-251 PO; +acetaminophen 325mg tablet PO ONE; +cefazolin 2gm/D5W 100mL 100 ML IV ONE; +celeCOXIB 100mg capsule PO ONE; +famotidine 20mg tablet PO ONE; +gabapentin 300mg capsule PO ONE; +metoclopramide 5 mg/ml inj IV ONE; +oxyCODONE SR 10mg (sust. release) tab -2 tabs (20mg) PO ONE; +tranexamic acid inj. 1,000 MG in normal saline IV soln 100ML IV ONE; +vancomycin/NS 1 GM ADD-VANTAGE 250 ML IV SCH; +vancomycin/NS 1 GM in NS 250 ML IV ONE
[2022-06-21] MEDS ORDERED: ATOM40CA PO (06:07)
[2022-06-21] MEDS ORDERED: DICL75TA5 PO (06:07)
[2022-06-21] MEDS ORDERED: FAMO20TA82 PO (06:07)
[2022-06-21] MEDS ORDERED: DICL150D9 TOP (06:07)
[2022-06-21] MEDS ORDERED: NALO4SPR BOTHNARES (06:07)
[2022-06-21] MEDS ORDERED: POLY17PO10 PO (06:07)
[2022-06-21] MEDS ORDERED: ATOM60CA PO (06:07)
[2022-06-21] MEDS ORDERED: HYDR-3686 PO (06:07)
[2022-06-21] MEDS: ringers solution, lacted 1,000 ML IV SCH ×3 (06:40→13:30)
[2022-06-21] MEDS ORDERED: ketorolac trometh. 30mg/ml inj. ONE (06:46)
[2022-06-21] MEDS ORDERED: vancomycin 1,000mg inj ONE (06:47)
[2022-06-21] MEDS ORDERED: epiNEPHrine 1 mg/ml inj ONE (06:47)
[2022-06-21] MEDS ORDERED: cloNIDine hcl/PF 100mcg/ml inj ONE (06:47)
[2022-06-21] MEDS ORDERED: HYDROcodone/acetaminophen 10/325mg tab PO PRN (06:50)
[2022-06-21] MEDS ORDERED: HYDROmorphone inj. 0.5 MG/0.5 ML DISP.SYRIN IV PRN (06:50)
[2022-06-21] MEDS ORDERED: magnesium hydroxide 30ml (MOM) UD suspension PO PRN (06:50)
[2022-06-21] MEDS ORDERED: naloxone 0.4 mg/ml inj IV PRN (06:50)
[2022-06-21] MEDS ORDERED: diphenhydrAMINE 25mg capsule PO PRN ×2 (06:50)
[2022-06-21] MEDS ORDERED: acetaminophen 325mg tablet PO PRN (06:50)
[2022-06-21] MEDS ORDERED: bisacodyl 10mg suppository rectal RC PRN (06:50)
[2022-06-21] MEDS ORDERED: ondansetron/PF 4mg/2ml inj IV PRN ×2 (06:50→07:15)
[2022-06-21] MEDS ORDERED: fentaNYL/PF 50MCG/1 ML 2ML syringe ONE (07:07)
[2022-06-21] MEDS ORDERED: MIDAZolam 1mg/ml 10ml vial ONE (07:07)
--- NOTE | 2022-06-21 07:09 | NUR ---
PATIENT DID NOT WATCH VIDEO OR USE OINTMENT CSM INTACT, PULSES MARKED
[2022-06-21] MEDS ORDERED: ringers solution, lacted 1,000 ML IV SCH (07:15)
[2022-06-21] MEDS ORDERED: labetalol 20mg/4ml (5mg/ml) syringe IV PRN (07:15)
[2022-06-21] MEDS ORDERED: morphine 4 MG/ML inj SYRINge IV PRN (07:15)
[2022-06-21] MEDS ORDERED: hydrALAZINE 20mg/ml inj. IV PRN (07:15)
[2022-06-21] MEDS ORDERED: fentaNYL/PF 50MCG/1 ML 2ML syringe IV PRN ×2 (07:15)
[2022-06-21] MEDS ORDERED: ROPIVAcaine 0.2% (10 MG/5 ML) BOLUS INJECTION ADDCANAL PRN (07:15)
[2022-06-21] MEDS ORDERED: ROPIVAcaine 0.2%/PF PUMP/bolus 545 ML ADDCANAL SCH (07:15)
[2022-06-21] MEDS ORDERED: morphine 2 MG/ML inj. syringe IV PRN (07:15)
[2022-06-21] MEDS ORDERED: propofol inj 20 ML IV ONE (07:54)
[2022-06-21] MEDS ORDERED: vancomycin/NS 1 GM ADD-VANTAGE 250 ML IV SCH (08:00)
[2022-06-21] MEDS ORDERED: ceFAZolin/D5W- 1GM premix 50 ML IV SCH (08:00)
[2022-06-21] MEDS ORDERED: ROPIVAcaine 0.5% (5mg/ml) 30ml vial ONE ×3 (08:02→08:26)
[2022-06-21] MEDS ORDERED: dexamethasone sod phosphate 4mg/ml inj. ONE (08:26)
[2022-06-21] MEDS: aspirin 325mg tablet PO SCH (08:30)
[2022-06-21] MEDS ORDERED: ROPIVAcaine 0.5% (5mg/ml) 30ml vial IJ ONE (08:53)
--- NOTE | 2022-06-21 09:30 | NUR ---
Received from OR via HOSPITAL BED, accompanied by Anesthesiologist ASIF MCCALL and report given by Anesthesiolgist. LEFT TOTAL KNEE ARTHROPLASTY. RIGHT AC 20G PIV WITH LR RUNNING. ONQ ATTACHED UPON ARRIVAL TO RECOVERY TO LEFT KNEE WITH DRESSING CDI AND CIELO. VSS. ON 10L MASK TO MAINTAIN SATURATIONS. DENIES PAIN.
--- NOTE | 2022-06-21 11:10 | NUR ---
PATIENT MEETS RECOVERY CRITERIA. BELONGINGS SENT WITH PATIENT. DENIES PAIN. SLIGHTLY MORE MOVEMENT IN BILATERAL LOWER EXTREMITIES. ONQ IN PLACE. LR RUNNING VIA RIGHT AC 20G PIV. Addendum: 06/21/22 at 1135 by Marie Tay RN REPORT GIVEN TO SILVANO SIERRA. PATIENT TRANSFERRED TO ROOM [facility].
--- NOTE | 2022-06-21 11:45 | NUR ---
Received report from fern cutter, assumed care of patient in room 4022B pt on post op vs and she is stable, pain controlled with On Q pump. oriented to the room. call light within reach
[2022-06-21] MEDS: HYDROmorphone 1 mg/ml syringe IV PRN ×2 (12:32→18:03)
[2022-06-21] MEDS ORDERED: tranexamic acid inj. 500 MG in normal saline 100ml IV soln 95 ML IV ONE (13:00)
[2022-06-21] MEDS ORDERED: albuterol 2.5 MG/3 ML nebule NEB PRN (14:00)
[2022-06-21] MEDS: potassium cl 20mEq in 1/2 NS 1,000 ML IV SCH ×3 (14:38→22:50)
[2022-06-21] MEDS: HYDROcodone/acetaminophen 10/325mg tab PO PRN ×2 (15:37→20:26)
[2022-06-21] MEDS: ceFAZolin/D5W- 1GM premix 50 ML IV SCH (18:01)
[2022-06-21] MEDS: hydrOXYzine 25 MG tablet PO SCH (18:03)
--- NOTE | 2022-06-21 18:20 | NUR ---
Patient in room [facility] 4021. I have received report from RIGO Guzman and had the opportunity to ask questions and assume patient care.
[2022-06-21] MEDS: busPIRone 5mg tablet PO SCH (20:23)
[2022-06-21] MEDS: ascorbic acid 500mg tablet PO SCH (20:23)
[2022-06-21] MEDS: gabapentin 300mg capsule PO SCH ×2 (20:25→21:00)
[2022-06-21] MEDS ORDERED: pantoprazole 40mg Tablet.DR PO SCH (21:00)
[2022-06-21] MEDS ORDERED: traZODone 50mg tablet PO SCH (21:00)
[2022-06-21] MEDS ORDERED: amitriptyline 50mg tablet PO SCH (21:00)
[2022-06-21] MEDS ORDERED: tizanidine 4mg tablet PO SCH (21:00)
[2022-06-21] MEDS ORDERED: ARIPIPRAZOLE 10 MG TABLET PO SCH ×2 (21:00)
[2022-06-21] MEDS ORDERED: sennosides 8.6mg tablet PO SCH (21:00)
[2022-06-22] MEDS: ceFAZolin/D5W- 1GM premix 50 ML IV SCH (00:36)
[2022-06-22] MEDS: HYDROcodone/acetaminophen 10/325mg tab PO PRN ×4 (00:37→12:59)
[2022-06-22] MEDS: hydrOXYzine 25 MG tablet PO SCH ×2 (00:37→08:52)
[2022-06-22 02:00] VITALS: BP 105/46
[2022-06-22] MEDS ORDERED: vancomycin/NS 1 GM ADD-VANTAGE 250 ML IV SCH (02:00)
[2022-06-22 06:20] LABS: BASOPHILS % (AUTO) 0.3 % (0-1); EOSINOPHILS # (AUTO) 0.1 X10'3 (0-0.9); EOSINOPHILS % (AUTO) 1.4 % (0-6); HEMATOCRIT 34.4 % (35.0-45.0); HEMOGLOBIN 11.4 g/dl (12.0-16.0); LYMPHOCYTES # (AUTO) 1.2 X10'3 (1.1-4.8); LYMPHOCYTES % (AUTO) 19.9 % (21-51); MEAN CORPUSCULAR HEMOGLOBIN 31.6 PG (27.0-31.0); MEAN CORPUSCULAR HGB CONC 33.1 g/dL (33.0-36.5); MEAN CORPUSCULAR VOLUME 95.6 FL (78-98); MEAN PLATELET VOLUME 7.7 FL (7.4-10.4); MONOCYTES # (AUTO) 0.8 X10'3 (0-0.9); MONOCYTES % (AUTO) 13.1 % (2-12); NEUTROPHILS % (AUTO) 65.3 % (42-75); PLATELET COUNT 195 X10'3 (140-440); RED CELL DISTRIBUTION WIDTH 13.5 % (11.5-14.5); WHITE BLOOD COUNT 6.1 X10'3 (4.5-11.0)
--- NOTE | 2022-06-22 06:40 | NUR ---
Problems reprioritized. Patient report given, questions answered & plan of care reviewed with RIGO Guadalupe.
[2022-06-22 06:42] LABS: ANION GAP 6 (8-16); CHLORIDE 104 MMOL/L (99-107); SODIUM 138 MMOL/L (135-145); TOTAL CARBON DIOXIDE 27.7 MMOL/L (24-32)
[2022-06-22] MEDS ORDERED: ATOMOXETINE 60 MG PO SCH (08:00)
[2022-06-22] MEDS ORDERED: buprenorphine/naloxone 8MG-2MG SUBlingual film SL SCH (08:00)
[2022-06-22] MEDS: gabapentin 300mg capsule PO SCH ×3 (08:00→12:59)
[2022-06-22] MEDS ORDERED: polyethylene glycol 3350 17gm powd pack PO SCH (08:00)
[2022-06-22] MEDS ORDERED: famotidine 20mg tablet PO SCH (08:00)
[2022-06-22] MEDS ORDERED: multivitamins, therapeutics tablet PO SCH (08:00)
[2022-06-22] MEDS: busPIRone 5mg tablet PO SCH (08:52)
[2022-06-22] MEDS: ascorbic acid 500mg tablet PO SCH (08:54)
[2022-06-22] MEDS: aspirin 325mg tablet PO SCH (08:54)
--- NOTE | 2022-06-22 11:51 | NUR ---
Joint surgery consult: Pt s/p L knee surgery this admit per EMR. Pt seen by LUBA at bedside for written/verbal high protein diet ed w/ RD contact information provided. LUBA encouraged pt to contact dietitian's office if nutrition questions/concerns. Addendum: 06/22/22 at [address] Amended: Links added.
[2022-06-22] MEDS ORDERED: celeCOXIB 100mg capsule PO SCH (20:00)
== END 2022-06-22 13:04 | disposition home or self-care (01) ==
LOC: PAS 05:41 → ORTHO 4S 06:50 → PAS 06-22 13:04
PROVIDERS: ATTEND Orthopaedic Surgery
DX: M17.12 Unilateral primary osteoarthritis, left knee (principal); M21.162 Varus deformity, not elsewhere classified, left knee; J44.9 Chronic obstructive pulmonary disease, unspecified; F41.9 Anxiety disorder, unspecified; F32.A Depression, unspecified; K21.9 Gastro-esophageal reflux disease without esophagitis; F15.91 Other stimulant use, unspecified, in remission; G89.18 Other acute postprocedural pain; Z88.0 Allergy status to penicillin; Z98.890 Other specified postprocedural states; Z87.891 Personal history of nicotine dependence; Z79.899 Other long term (current) drug therapy; Z98.51 Tubal ligation status
CPT/HCPCS: 27447; 36415; 64448; 71046; 73560; 80051; 80053; 82948; 85025; 86885; 86900; 86901; 87081; 93005; 97110; 97116; 97161; C1713; C1776; J0171; J0690; J0735; J1100; J1170; J1885; J2250; J2704; J2765; J2795; J3010; J3370; J3480; J3490; J7030; J7120; Q0177; Z7506; Z7508; Z7512; 97530; A4215; A7000; G0378